=== PATIENT | male | born 1955 | race Caucasian/White ===

== ENCOUNTER → 2020-01-28 14:05 | Outpatient (BNVA) | payer MEDICARE, OTHER, SELFPAY | PROVIDERS: Family Provider Nurse Practitioner Family; PCP Nurse Practitioner Family; Visit Provider Family Medicine | DX: Z13.6 Encounter for screening for cardiovascular disorders (principal); G47.00 Insomnia, unspecified | CPT/HCPCS: 80053; 80061; 82607; 85025 ==

== ENCOUNTER → 2020-11-24 13:20 | Outpatient (BNVA) | payer MEDICARE, OTHER, SELFPAY | PROVIDERS: Family Provider Nurse Practitioner Family; PCP Family Medicine; Visit Provider Family Medicine | DX: I10 Essential (primary) hypertension (principal); E03.9 Hypothyroidism, unspecified; R35.1 Nocturia; E78.5 Hyperlipidemia, unspecified; G25.81 Restless legs syndrome; Z68.1 Body mass index [BMI] 19.9 or less, adult; F17.290 Nicotine dependence, other tobacco product, uncomplicated | CPT/HCPCS: 80053; 80061; 84153; 84443; 85025 ==

== ENCOUNTER → 2021-05-27 12:11 | Outpatient (BNVA) | payer MEDICARE, OTHER, SELFPAY | PROVIDERS: Family Provider Nurse Practitioner Family; PCP Family Medicine; Visit Provider Family Medicine | DX: E03.9 Hypothyroidism, unspecified (principal); J30.89 Other allergic rhinitis; J44.9 Chronic obstructive pulmonary disease, unspecified; G25.81 Restless legs syndrome; I10 Essential (primary) hypertension; F17.219 Nicotine dependence, cigarettes, with unspecified nicotine-induced disorders | CPT/HCPCS: 84443 ==

== ENCOUNTER 2021-10-23 13:11 | Outpatient (CLI) | payer MEDICARE, OTHER, SELFPAY ==
--- NOTE | 2021-10-23 13:30 | XRR_ITS ---
PROCEDURE INFORMATION: Exam: XR Right Ribs Exam date and time: 10/23/2021 1:30 PM Age: 66 years old Clinical indication: Injury or trauma; Fall; Rib area; Blunt trauma (contusions or hematomas); Additional info: Pain after fall TECHNIQUE: Imaging protocol: XR Right ribs. Views: 2 views. COMPARISON: CR Chest 2 views* [id number] 03/12/2018 3:23 PM FINDINGS: Bones/joints: There is no evidence for acute fracture or malalignment. Soft tissues: Normal. XR/XR ribs RT 2V* [id number] IMPRESSION: No acute findings.
--- NOTE | 2021-10-23 13:30 | XRR_ITS ---
PROCEDURE INFORMATION: Exam: XR Right Foot Exam date and time: 10/23/2021 1:30 PM Age: 66 years old Clinical indication: Injury or trauma; Fall; Blunt trauma; Foot; Right; Additional info: Pain after fall TECHNIQUE: Imaging protocol: XR Right foot. Views: 3 or more views. COMPARISON: No relevant prior studies available. FINDINGS: Bones/joints: There is no evidence for acute fracture or malalignment. Soft tissues: Normal. XR/XR foot RT min 3V* [id number] IMPRESSION: No acute findings.
== END 2021-10-23 13:12 | disposition home or self-care (01) ==
PROVIDERS: PCP Family Medicine; Visit Provider Nurse Practitioner
DX: M79.671 Pain in right foot (principal); R07.81 Pleurodynia
CPT/HCPCS: 71100; 73630

== ENCOUNTER → 2022-05-20 11:37 | Outpatient (BNVA) | payer MEDICARE, OTHER, SELFPAY | PROVIDERS: PCP Family Medicine; Visit Provider Family Medicine | DX: I10 Essential (primary) hypertension (principal); E03.9 Hypothyroidism, unspecified; J44.9 Chronic obstructive pulmonary disease, unspecified; G25.81 Restless legs syndrome | CPT/HCPCS: 80053; 84443; 85025 ==

== ENCOUNTER → 2022-12-02 13:46 | Outpatient (BNVA) | payer MEDICARE, OTHER, SELFPAY | PROVIDERS: PCP Family Medicine; Visit Provider Family Medicine | DX: I10 Essential (primary) hypertension (principal); E03.9 Hypothyroidism, unspecified; G25.81 Restless legs syndrome; J44.9 Chronic obstructive pulmonary disease, unspecified; E78.5 Hyperlipidemia, unspecified | CPT/HCPCS: 80061; 84443 ==

== ENCOUNTER → 2023-10-27 12:47 | Outpatient (BNVA) | payer MEDICARE, OTHER, SELFPAY | PROVIDERS: PCP Family Medicine; Visit Provider Family Medicine | DX: I10 Essential (primary) hypertension (principal); E03.9 Hypothyroidism, unspecified | CPT/HCPCS: 80048; 84443 ==

== ENCOUNTER → 2024-02-20 14:13 | Outpatient (BNVA) | payer MEDICARE, OTHER, SELFPAY | PROVIDERS: PCP Family Medicine; Visit Provider Family Medicine | DX: E78.5 Hyperlipidemia, unspecified (principal); E03.9 Hypothyroidism, unspecified; I63.9 Cerebral infarction, unspecified; I63.89 Other cerebral infarction | CPT/HCPCS: 80053; 80061; 85025 ==

== ENCOUNTER → 2024-07-01 14:51 | Outpatient (BNVA) | payer MEDICARE, OTHER, SELFPAY | PROVIDERS: PCP Family Medicine; Visit Provider Family Medicine | DX: I10 Essential (primary) hypertension (principal); I77.9 Disorder of arteries and arterioles, unspecified; E78.5 Hyperlipidemia, unspecified; E89.0 Postprocedural hypothyroidism; M81.0 Age-related osteoporosis without current pathological fracture; E87.1 Hypo-osmolality and hyponatremia | CPT/HCPCS: 80048; 82306; 82310; 83970; 84439; 84443 ==

== ENCOUNTER → 2024-09-26 13:25 | Outpatient (BNVA) | payer MEDICARE, OTHER, SELFPAY | PROVIDERS: PCP Family Medicine; Visit Provider Family Medicine | DX: E87.1 Hypo-osmolality and hyponatremia; I10 Essential (primary) hypertension | CPT/HCPCS: 80048; 83930 ==